=== PATIENT | female | born 1950 | race Caucasian/White ===

== ENCOUNTER 2020-03-16 10:15 | Outpatient (CLI) | payer OTHER, SELFPAY ==
--- NOTE | ~2020-03-16 | XR_ITS ---
EXAMINATION: XR hip LT min 2V DATE: 03/16/2020 10:31 INDICATION: Left hip pain. TECHNIQUE: 2 views of left hip were obtained. COMPARISON: None. FINDINGS: There is levocurvature and severe spondylosis of lumbar spine. No fracture. There is mild l eft hip osteoarthritis. IMPRESSION: 1. Mild left hip osteoarthritis. Reviewed, dictated and finalized at location A.
--- NOTE | ~2020-03-16 | XR_ITS ---
EXAMINATION: XR hip RT min 2V DATE: 03/16/2020 10:31 INDICATION: Right hip pain. TECHNIQUE: 3 views of right hip were obtained. COMPARISON: None. FINDINGS: There is lumbar levocurvature and severe spondylosis. No fracture. There is mild right hip osteoarthritis. IMPRESSION: 1. Mild right hip osteoarthritis. Reviewed, dictated and finalized at location A.
== END 2020-03-16 10:16 | disposition home or self-care (01) ==
PROVIDERS: PCP Family Medicine; Visit Provider Family Medicine
DX: M25.552 Pain in left hip (principal); M25.551 Pain in right hip; M16.0 Bilateral primary osteoarthritis of hip
CPT/HCPCS: 73502

== ENCOUNTER 2021-10-03 01:03 | Day surgery (SDC) | payer OTHER, SELFPAY ==
[2021-09-20 13:45] VITALS: BMI 35.3
[2021-10-03 09:49] VITALS: BP 147/81; PULSE 92; RESP 20; TEMP 36.7; O2SAT 97
--- NOTE | 2021-10-03 09:59 | WPDGICN ---
Assessment and Plan Assessment and plan (1) Screening for colon cancer: Code(s): Z12.11 - Encounter for screening for malignant neoplasm of colon Status: Acute Assessment and Plan: Patient presents for screening colonoscopy. Appears to be at average risk for colon polyps. GI Consult Note Consult date/time: 10/03/21 09:59 HPI: Ester Leos is a 70 year old female Presents for screening colonoscopy. Patient's current weight appetite and bowel movements are normal. She denies abdominal pain. She has had no bleeding. Family history noncontributory. Neoplasia screening to be performed today. Review of Systems Review of Systems: All systems reviewed & are unremarkable except as noted in HPI and below PMFSH Past Medical History Medical History Hyperlipidemia Surgical History Surgical History History of History of knee replacement procedure of left knee History of knee replacement procedure of right knee Hx of cataract removal with insertion of prosthetic lens Family History Family History Mother Cerebrovascular accident Hypertension Father Cerebrovascular accident Social History Social History Smoking packs per day: 0.5 Smoking cigarettes per day: 10.0 Years smoked: 4 Smoking pack-years: 2.00 Smoking status: Former smoker Second hand tobacco smoke exposure: Yes Smoking end date: 08/20/74 Alcohol intake: never Substance use: never Substance use type: does not use Living arrangements: with family Spiritual care concerns: No Meds Home Medications and Allergies Home Medications Medication Instructions Recorded Confirmed Type aspirin 81 mg tablet,delayed 81 mg PO DAILY #90 tablet 08/06/20 09/20/21 Rx release ezetimibe 10 mg-simvastatin 20 mg 1 tablet PO DAILY #90 tablet 09/15/21 09/20/21 Rx tablet Allergies Allergy/AdvReac Type Severity Reaction Status Date / Time No Known Allergies Allergy Verified 10/03/21 09:48 Vital Signs Vital Signs - 24 hr 10/03/21 09:49 Temperature 98.1 F Pulse Rate 92 Respiratory Rate 20 Blood Pressure 147/81 H Pulse Oximetry 97 Exam Narrative: Physical exam reveals patient to be alert. Vital signs stable. HEENT exam unremarkable. Patient is anicteric. Lungs are clear to auscultation and percussion. Heart is without murmur or extra sounds. Abdominal exam bowel sounds are present soft nontender with no organomegaly. Digital external rectal exam is normal.
[2021-10-03] MEDS: LACTATED RINGERS 1,000 ML 150 ML IV CONT (10:06)
--- NOTE | 2021-10-03 10:10 | WPDANESEPPF ---
Anes - Initial Pre Proc Eval Procedure: Operation Date: 10/03/21 11:00 Proposed Procedures p Screening Colonoscopy - Mo Kaur MD Date/Time: 10/03/21 10:10 Surgeon: Mo Kaur MD Pre Op Diagnosis: neoplasm screening Patient Data Age: 70 Gender: F Height: 1.52 m Weight: 85.6 kg Last Vital Signs Temp 36.7 C 10/03/21 09:49 Pulse 92 10/03/21 09:49 Resp 20 10/03/21 09:49 BP 147/81 H 10/03/21 09:49 Pulse Ox 97 10/03/21 09:49 Allergies Allergy/AdvReac Type Severity Reaction Status Date / Time No Known Allergies Allergy Verified 10/03/21 09:48 Home Medications Medication Instructions Recorded Confirmed Type aspirin 81 mg tablet,delayed 81 mg PO DAILY #90 tablet 08/06/20 09/20/21 Rx release ezetimibe 10 mg-simvastatin 20 mg 1 tablet PO DAILY #90 tablet 09/15/21 09/20/21 Rx tablet Patient hx anesthesia problems: none Family hx anesthesia problems: none Results Review: All pre-operative results and documents have been reviewed as part of the pre-operative evaluation. [facility] Past Medical History Medical History Hyperlipidemia Surgical History Surgical History History of History of knee replacement procedure of left knee History of knee replacement procedure of right knee Hx of cataract removal with insertion of prosthetic lens Family History Family History Mother Cerebrovascular accident Hypertension Father Cerebrovascular accident Social History Social History Smoking packs per day: 0.5 Smoking cigarettes per day: 10.0 Years smoked: 4 Smoking pack-years: 2.00 Smoking status: Former smoker Second hand tobacco smoke exposure: Yes Smoking end date: 08/20/74 Alcohol intake: never Substance use: never Substance use type: does not use Living arrangements: with family Spiritual care concerns: No Anes - Eval Final PreProcedure Day of Procedure 10/03/21 10:10 Patient weight: obese Heart: regular rate and rhythm Lungs: clear to auscultation Airway: Mallampati scale class II Neurological: alert and oriented Last oral intake: >/= 8 hours ASA classification: II Emergent: no Anesthetic plan: proceed Anesthesia type and monitoring: general GIVS and standard monitoring Results Review: All pre-operative results and documents have been reviewed as part of the pre-operative evaluation. Informed Consent: The patient's anesthetic plan and its attendant risks and benefits were discussed with the patient/family/POA. Questions were solicited and answers provided to the satisfaction of the patient/family/POA.
[2021-10-03] MEDS: SIMETHICONE ORAL SUSPENSION 20 MG/0.3 ML 30 ML BOTTLE 0.6 ML IRRIGATION (10:44)
[2021-10-03 10:52] VITALS: BP 117/71; PULSE 79; RESP 21; O2SAT 97
[2021-10-03 11:02] VITALS: BP 115/71; PULSE 70; RESP 14; O2SAT 95
[2021-10-03 11:10] VITALS: BP 131/95; PULSE 80; RESP 18; O2SAT 98
== END 2021-10-03 11:11 | disposition home or self-care (01) ==
PROVIDERS: PCP Internal Medicine; Visit Provider Internal Medicine Gastroenterology
PROC: 0DJD8ZZ Inspection of Lower Intestinal Tract, Via Natural or Artificial Opening Endoscopic (ICD-10-PCS; CPT 45378; principal; 2021-10-03 11:00)
DX: Z12.11 Encounter for screening for malignant neoplasm of colon (principal); K64.8 Other hemorrhoids; K57.30 Diverticulosis of large intestine without perforation or abscess without bleeding; E78.5 Hyperlipidemia, unspecified; Z87.891 Personal history of nicotine dependence; E66.9 Obesity, unspecified; Z68.36 Body mass index [BMI] 36.0-36.9, adult
CPT/HCPCS: 45378; J2704; J7120

== ENCOUNTER 2022-01-02 10:04 | Outpatient (CLI) | payer OTHER, SELFPAY ==
--- NOTE | ~2022-01-02 | DEXA_ITS ---
Bone Density Report Name: DYLAN DE LA GARZA Age: 71 Sex: Female Ethnicity: White Date of : 1950 Indication: postmenopausal; screening for osteoporosis; height loss; Referring Provider: GARO GUY Study: Bone densitometry was performed. Exam Date: January 02, 2022 Accession number: [id number] Bone Density: Region BMD T-score Z-score Classification AP Spine(L1, L2, L3) 1.100 0.7 2.8 Normal Femoral Neck (Left) 0.740 -1.0 0.8 Normal Total Hip (Left) 0.883 -0.5 1.0 Normal Femoral Neck (Right) 0.706 -1.3 0.5 Osteopenia Total Hip (Right) 0.843 -0.8 0.7 Normal Total Hip Mean 0.863 -0.7 0.9 Normal World Health Organization criteria for BMD impression classify patients as: Normal (T-score at or above -1.0), Osteopenia (T-score between -1.0 and -2.5), or Osteoporosis (T-score at or below -2.5). 10-year Fracture Risk(1): Major Osteoporotic Fracture 8.6% Hip Fracture 1.0% Reported Risk Factors: [place] (), Neck BMD=0.706, BMI=37.1 (1) FRAX(R) Version 3.08. Fracture probability calculated for an untreated patient. Fracture probability may be lower if the patient has received treatment. Clinical Information Provided by Patient: Patient maximum height was 62 Menopause Age: 51 No regular weight bearing exercise Drinks caffeinated beverages Onset of menses at age 14 Number of children 3 Impression: The patient has low bone mass, based on the Right Femoral Neck T-score. The patient has an estimated ten-year risk of hip fracture of 1% and an estimated ten-year risk of major fracture of 8.6%, based on the WHO FRAX algorithm. Discussion: BONE DENSITY IS LOW AT ONE OR MORE SKELETAL SITES. This patient's lowest T-score is low at one or more skeletal sites. It meets the World Health Organization's (WHO) criteria for ?low bone mass? (T-score between -1.0 and -2.5). The patient's 10-year risk of fracture as calculated by FRAX is less than the threshold where pharmacological therapy is recommended by the National Osteoporosis Foundation (NOF). However, all treatment decisions require clinical judgment and consideration of individual patient factors, including patient preferences, comorbidities, previous drug use, risk factors not captured in the FRAX model (e.g., frailty, falls, vitamin D deficiency, increased bone turnover, interval significant decline in bone density) and possible under or overestimation of fracture risk by FRAX. The patient should follow a healthful lifestyle (good nutrition with adequate calcium and vitamin D, and appropriate weight-bearing exercise). Follow-Up: Consider repeating this study in 2 to 3 years to reassess this patient's status, or sooner if there is some new clinical indication. Reported by: [facility] on 01/02/2022 10:35:00 AM.
--- NOTE | ~2022-01-02 | MM_ITS ---
EXAMINATION: MM screening [facility] BI w nancy HISTORY: Screening mammogram TECHNIQUE: Craniocaudal and mediolateral oblique 3-D tomosynthesis images were obtained and synthetic 2-D images were generated. CAD analysis was submitted and interpreted. COMPARISON: 10/23/2017, 03/24/2016 BREAST PARENCHYMAL COMPOSITION: There are scattered areas of fibroglandular density. FINDINGS: There is no suspicious mass, calcification, or architectural distortion to suggest malignan cy in either breast. There has been no suspicious interval change. IMPRESSION: 1. No mammographic evidence of malignancy. 2. Recommend routine screening mammography in one year. BI-RADS Category 1: Negative Reviewed, dictated and finalized at location A.
== END 2022-01-02 10:05 | disposition home or self-care (01) ==
LOC: ANHIMG 10:05
PROVIDERS: PCP Internal Medicine; Visit Provider Nurse Practitioner
DX: Z12.31 Encounter for screening mammogram for malignant neoplasm of breast (principal); Z78.0 Asymptomatic menopausal state; M85.852 Other specified disorders of bone density and structure, left thigh
CPT/HCPCS: 77063; 77067; 77080

== ENCOUNTER 2022-03-29 17:00 | Outpatient (RCR) | payer OTHER, SELFPAY ==
--- NOTE | 2022-03-09 14:43 | PTOPEVAL ---
PHYSICAL THERAPY EVALUATION AND PLAN OF CARE Thank you for referring Ester Leos to [facility].? The patient is scheduled to be seen for therapy? 1x/week for 3 weeks. Please review, sign, date and return this plan of care BERNARDINO. I agree with and certify that the following plan of care is medically necessary. Referring Physician Date Attending Provider: Koby Wade, DO Diagnosis balance and gait abnormality Onset 4 years Subjective Information States that she feels like her Query Text:As Reported By Patient/ balance and gait are bad. She Family reports bilateral knee replacement, being bow legged, and no arches. Thinks that maybe her knees are not bending right and thinks her right foot turns in. Feels like she is falling to the right or backward even when just standing still. Feels like she has always had some balance impairments but feels like it is getting worse. Lower Extremity Muscle Strength Testing General Lower Extremity Strength Gross Lower Extremity Strength hip flexion: 5/5 bilaterally hip abduction: 3/5 bilaterally hip extension: 3/5 bilaterally but ROM limited secondary to short quad and hip flexor length Balance Assessment Chi Balance Assessment Sitting to Standing Independent w/out Hands Unsupported Stance Ability Safely- 2 minutes Sitting Unsupported, Feet on Floor Safely- 2 minutes Standing to Sitting Safely, Minimal Hand Use Transfer Ability Safely, Minimal Hand Use Unsupported Stance- Eyes Closed Supervision, 10 seconds Unsupported Stance- Feet Together Supervision to maintain Reaching Forward while Standing Safely, 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 From Floor Supervision Look Behind Shoulder - Standing Shifts Weight Well Turning 360 Degrees Turns Bilateral, < 4 secs Unsupported Stance, Alternating Feet on (I)- 8 Steps in 20 secs Stair Unsupported Tandem Stance Holds Tandem- 30 seconds Unilateral Leg Stance Lifts Leg/Holds 5-10 secs CHI Balance Evaluation Total Score (/56 50 points) 5 Time Sit to Stand Time in Seconds 12.76 Gait Assessment Gait Pattern Assessment Gait Pattern Trendelenburg Gait,Weaving Gait Gait Pattern Observed Trunk Lateral Lean - Left 2 Minute Walk Total Distance Walked (feet) 393 2 Minute Walk Gait Speed Score (feet/ 3.27
--- NOTE | 2022-03-29 17:32 | PTOPEVAL ---
PHYSICAL THERAPY DISCHARGE NOTE Thank you for referring Ester Leos to [facility] [place][Note 2].?Please review, sign, date and return this plan of care BERNARDINO. I agree with and certify that the following plan of care is medically necessary. Referring Physician Date Attending Provider: Koby Wade DO Problem Diagnosis balance and gait abnormality Onset 4 years Subjective Information States she feels that her gait Query Text:As Reported By Patient/ and balance are improving. Family Doing her exercises and stretches. Lower Extremity Muscle Strength Testing General Lower Extremity Strength Gross Lower Extremity Strength hip flexion: 5/5 bilaterally hip abduction: 4/5 bilaterally hip extension: 4/5 bilaterally Balance Assessment Gonzalez Balance Assessment 56/56 Time Up Go (TUG) Timed Up and Go Test (TUG) (Seconds) 8 5 Time Sit to Stand Time in Seconds 8.3 5 Time Sit to Stand Comments 3 weeks ago: 12.76seconds Query Text:Normative Data: If Greater Than 15 Seconds, 74% Increase Risk for Recurrent Falls Gait Assessment 2 Minute Walk Total Distance Walked (feet) 527 2 Minute Walk Gait Speed Score (feet/ 4.39 second) 2 Minute Walk Test Comments 3 weeks ago: 393ft (3.27ft/ second) PT Clinical Summary Ester has participated in 3 weeks of physical therapy with [facility]. She demonstrates significant improvement to her balance with greater proprioceptive awareness. she also demonstrates improved LE strength and greater knee ROM. She is independent in [facility]. Will d/c at this time.
== END 2022-03-30 11:00 | disposition home or self-care (01) ==
LOC: ANHPT 17:00
PROVIDERS: PCP Internal Medicine; Visit Provider Internal Medicine
DX: R26.9 Unspecified abnormalities of gait and mobility (principal)
CPT/HCPCS: 97110; 97112; 97162

== ENCOUNTER 2023-06-26 08:51 | Outpatient (CLI) | payer OTHER, SELFPAY ==
--- NOTE | ~2023-06-26 | MM_ITS ---
EXAMINATION: MM screening [facility] BI w nancy HISTORY: Screening TECHNIQUE: Craniocaudal and mediolateral oblique 3-D tomosynthesis images were obtained and synthetic 2-D images were generated. CAD analysis was submitted and interpreted. COMPARISON: Comparison to multiple prior studies sequentially, with oldest reviewed study dated 12/2015. BREAST PARENCHYMAL COMPOSITION: There are scattered areas of fibroglandular density. FINDINGS: There is no evidence of suspicious mass, calcification, or architectural distortion to sugg est malignancy in either breast. There has been no suspicious interval change. IMPRESSION: 1. No mammographic evidence of malignancy. 2. Recommend routine screening mammography in one year. BI-RADS Category 1: Negative Reviewed, dictated and finalized at location A. RISK CASE MANAGER
== END 2023-06-26 08:52 | disposition home or self-care (01) ==
LOC: ANHIMG 08:54
PROVIDERS: PCP Nurse Practitioner Family; Visit Provider Nurse Practitioner Family
DX: Z12.31 Encounter for screening mammogram for malignant neoplasm of breast (principal)
CPT/HCPCS: 77063; 77067